=== PATIENT | female | born 1980 | race Caucasian/White ===

== ENCOUNTER 2019-05-09 20:58 | Emergency (ER) | payer OTHER, SELFPAY ==
[2019-05-09 21:13] VITALS: BP 129/77; PULSE 91; RESP 14; TEMP 36.9; O2SAT 94
--- NOTE | 2019-05-09 21:13 | DI.RAD.S_ITS ---
PROCEDURE: XR KNEE LT 3V INDICATIONS: twisting injury lt knee pain unable to bear weight TECHNIQUE: 3 views of the knee were acquired. COMPARISON: None. FINDINGS: Bones: No fractures or dislocations. No suspicious bony lesions. Soft tissues: No joint effusion. No suspicious soft tissue calcifications. IMPRESSION: No evidence acute bony abnormality of the left knee Dictated by: Devin Dale M.D. on 05/09/2019 at 21:52 Approved by: Devin Dale M.D. on 05/09/2019 at 21:52
--- NOTE | 2019-05-09 22:11 | ED.LOWEXIN ---
HPI - Extremity Injury (Lower) General Chief Complaint: Extremity Injury, Lower Stated Complaint: LEFT KNEE INJURY Time Seen by Provider: 05/09/19 21:17 Source: patient and family Mode of arrival: ambulatory Limitations: no limitations History of Present Illness HPI Narrative: 30-year-old female nonsmoker with noncontributory medical history presents with severe left knee pain after twisting it while walking briskly on uneven terrain. She states that she fell while twisting and denies any direct impact of her knee. She has significant pain with ambulation and improvement with rest. She denies other injury. She denies any numbness, tingling or weakness. She denies any history of left knee trouble, but has a history of right knee injury MD complaint: knee injury Onset (ago): hour(s) Type of Injury: inversion Place: street/outdoors Severity: moderate Relieving factors: immobilization and rest Exacerbating factors: weight bearing, movement and palpation Context: fall and walking Associated symptoms: swelling and able to partially bear weight Other symptoms: none Treatments prior to arrival: cold therapy Related Data Home Medications Medication Instructions Recorded Confirmed cetirizine 10 mg PO Q DAY #0 10/15/16 Previous Rx's Medication Instructions Recorded celecoxib [Celebrex] 200 mg PO [facility] #10 cap 11/04/17 cyclobenzaprine 10 mg PO Q8HP PRN #20 tab 11/04/17 hydrocodone-acetaminophen [[place]] 1 tab PO Q4HP PRN #14 tab 11/04/17 Allergies Allergy/AdvReac Type Severity Reaction Status Date / Time chlorhexidine [CHLORHEXIDINE] Allergy Intermediate RASH/HIVES Unverified 12/23/17 12:22 azithromycin [AZITHROMYCIN] Allergy Unknown HIVES Unverified 12/23/17 12:22 bee pollen [BEE POLLEN] Allergy Unknown Unverified 12/23/17 12:22 ciprofloxacin [CIPROFLOXACIN] Allergy Unknown INTENSE Unverified 12/23/17 12:22 STOMACH PAIN RED MEAT Allergy Unknown Uncoded 12/23/17 12:22 CUCA HAY Allergy Unknown Uncoded 12/23/17 12:22 Review of Systems Constitutional Denies chills, Denies fever(s), Denies lethargy and Denies weakness Eyes Denies change in vision, Denies eye discharge, Denies irritation and Denies loss of vision ENT Ears, Nose, Mouth, and Throat: Denies change in voice, Denies neck pain and Denies sore throat Cardiovascular Denies chest pain, Denies irregular heart rhythm, Denies lightheadedness, Denies palpitations, Denies dyspnea, Denies dyspnea on exertion and Denies orthopnea Respiratory Denies cough, Denies dyspnea, Denies dyspnea on exertion and Denies wheezing Gastrointestinal Gastrointestinal: Denies abdominal pain, Denies change in bowel habits, Denies diarrhea, Denies nausea and Denies vomiting Genitourinary Denies hematuria, Denies flank pain, Denies urinary incontinence and Denies urinary urgency Musculoskeletal Reports joint swelling, Reports limited range of motion and Denies neck pain Integumentary/Breasts Denies pruritus, Denies erythema, Denies rash and Denies wounds Neurologic Denies confusion, Denies loss of vision and Denies weakness Psychiatric Denies anxiety, Denies confusion, Denies depression, Denies homicidal ideation and Denies suicidal ideation Endocrine Denies palpitations Hematologic/Lymphatic Denies easy bruising Allergic/Immunologic Denies wheezing Exam Narrative Exam Narrative: GENERAL: [30] year old patient appears stated age. Well-nourished, well-developed patient, in mild distress, rubbing her left knee HEAD: Atraumatic. Normocephalic. EYES: Pupils equal round and reactive. Extraocular motions intact. No scleral icterus. No injection or drainage. ENT: Nose without bleeding, purulent drainage. Throat without erythema, tonsillar hypertrophy or exudate. Airway patent. NECK: Trachea midline. Non tender CARDIOVASCULAR: Regular rate and rhythm without murmurs, gallops, or rubs. RESPIRATORY: Clear to auscultation. Breath sounds equal bilaterally. No wheezes, rales, or rhonchi. GASTROINTESTINAL: Abdomen soft, non-tender, nondistended. EXTREMITIES: No joint line or patellar tenderness. No obvious effusion. There is some ligamentous instability with examination of LCL. Mahamed's has firm stop. Corrina's illicits pain at lateral aspect BACK: Nontender without deformity or crepitance. No flank tenderness. NEURO: AOx3. SKIN: No rash or erythema of visible areas Initial Vital Signs Initial Vital Signs: Vital Signs Temperature 98.4 F 05/09/19 21:13 Pulse Rate 91 H 05/09/19 21:13 Respiratory Rate 14 05/09/19 21:13 Blood Pressure 129/77 05/09/19 21:13 Pulse Oximetry 94 05/09/19 21:13 Procedures Orthopedic Splinting/Casting Injury #1: Side: left Lower Extremity Injury Location: knee Lower Extremity Immobilizer: knee immobilizer Course Orders Ordered: ED Orders 05/09/19 21:13 XR knee LT 3V Stat Vital Signs - 8 hr 05/09/19 21:13 05/09/19 22:18 Temperature 98.4 F Pulse Rate 91 H 77 Respiratory Rate 14 18 Blood Pressure 114/71 Blood Pressure [Left Arm] 129/77 Pulse Oximetry 94 98 MDM - Extremity Injury (Lower) Imaging Data Knee Xray: Radiologist's impression: [address] [address] XRay Report Signed Patient: Elizabeth Durant LMR#: [id number] : 1980Acct:[id number] Age/Sex: 38 / FDate of Service: 05/09/19 Loc: ED Accession Number: [id number] Procedure: XR knee LT 3V Ordering Provider: Jace Ocasio D.O. PROCEDURE: XR KNEE LT 3V INDICATIONS: twisting injury lt knee pain unable to bear weight TECHNIQUE: 3 views of the knee were acquired. COMPARISON: None. FINDINGS: Bones: No fractures or dislocations. No suspicious bony lesions. Soft tissues: No joint effusion. No suspicious soft tissue calcifications. IMPRESSION: No evidence acute bony abnormality of the left knee Dictated by: Devin Dale M.D. on 05/09/2019 at 21:52 Approved by: Devin Dale M.D. on 05/09/2019 at 21:52 Discharge Plan Departure Patient Disposition: Home Clinical Impression: Knee LCL sprain Qualifiers: Encounter type: initial encounter Laterality: left Qualified Code(s): S83.422A - Sprain of lateral collateral ligament of left knee, initial encounter Discharge Date/Time: 05/09/19 22:18 Interventions: ED Discharge Assessment Last Done: 05/09/19 22:18 Instructions: DI for Knee Sprain Activity Restrictions/Additional Instructions: *You have been diagnosed with [ L knee sprain, suspect LCL involvement and possibly meniscus ] *What to do: *Take medications as directed *Follow up with your primary care provider in 2-3 days, call for an appointment. Let them know you were seen in the Emergency Department and that we ask that you be seen in follow up *Return to ER if you should have any new, worsening or concerning symptoms Prescriptions: No Action cetirizine 10 MG tablet 10 mg PO Q DAY Qty: 0 RF: 0 celecoxib [Celebrex] 200 MG capsule 200 mg PO [facility] Qty: 10 RF: 0 cyclobenzaprine 10 MG tablet 10 mg PO Q8HP PRNQty: 20 RF: 0 hydrocodone-acetaminophen [[place]] 5 MG/325 MG tablet 1 tab PO Q4HP PRNQty: 14 RF: 0 Referrals: Robles Townsedn MD [Primary Care Provider] -
[2019-05-09 22:18] VITALS: BP 114/71; PULSE 77; RESP 18; O2SAT 98
--- NOTE | 2019-05-10 04:34 | ED_ITS ---
HPI - Extremity Injury (Lower) General Chief Complaint: Extremity Injury, Lower Stated Complaint: LEFT KNEE INJURY Time Seen by Provider: 05/09/19 21:17 Source: patient and family Mode of arrival: ambulatory Limitations: no limitations History of Present Illness HPI Narrative: 30-year-old female nonsmoker with noncontributory medical history presents with severe left knee pain after twisting it while walking briskly on uneven terrain. She states that she fell while twisting and denies any direct impact of her knee. She has significant pain with ambulation and improvement with rest. She denies other injury. She denies any numbness, tingling or weakness. She denies any history of left knee trouble, but has a history of right knee injury MD complaint: knee injury Onset (ago): hour(s) Type of Injury: inversion Place: street/outdoors Severity: moderate Relieving factors: immobilization and rest Exacerbating factors: weight bearing, movement and palpation Context: fall and walking Associated symptoms: swelling and able to partially bear weight Other symptoms: none Treatments prior to arrival: cold therapy Related Data Home Medications Medication Instructions Recorded Confirmed cetirizine 10 mg PO Q DAY #0 10/15/16 Previous Rx's Medication Instructions Recorded celecoxib [Celebrex] 200 mg PO [facility] #10 cap 11/04/17 cyclobenzaprine 10 mg PO Q8HP PRN #20 tab 11/04/17 hydrocodone-acetaminophen [[place]] 1 tab PO Q4HP PRN #14 tab 11/04/17 Allergies Allergy/AdvReac Type Severity Reaction Status Date / Time chlorhexidine [CHLORHEXIDINE] Allergy Intermediate RASH/HIVES Unverified 12/23/17 12:22 azithromycin [AZITHROMYCIN] Allergy Unknown HIVES Unverified 12/23/17 12:22 bee pollen [BEE POLLEN] Allergy Unknown Unverified 12/23/17 12:22 ciprofloxacin [CIPROFLOXACIN] Allergy Unknown INTENSE Unverified 12/23/17 12:22 STOMACH PAIN RED MEAT Allergy Unknown Uncoded 12/23/17 12:22 CUCA HAY Allergy Unknown Uncoded 12/23/17 12:22 Review of Systems Constitutional Denies chills, Denies fever(s), Denies lethargy and Denies weakness Eyes Denies change in vision, Denies eye discharge, Denies irritation and Denies loss of vision ENT Ears, Nose, Mouth, and Throat: Denies change in voice, Denies neck pain and Denies sore throat Cardiovascular Denies chest pain, Denies irregular heart rhythm, Denies lightheadedness, Denies palpitations, Denies dyspnea, Denies dyspnea on exertion and Denies orthopnea Respiratory Denies cough, Denies dyspnea, Denies dyspnea on exertion and Denies wheezing Gastrointestinal Gastrointestinal: Denies abdominal pain, Denies change in bowel habits, Denies diarrhea, Denies nausea and Denies vomiting Genitourinary Denies hematuria, Denies flank pain, Denies urinary incontinence and Denies urinary urgency Musculoskeletal Reports joint swelling, Reports limited range of motion and Denies neck pain Integumentary/Breasts Denies pruritus, Denies erythema, Denies rash and Denies wounds Neurologic Denies confusion, Denies loss of vision and Denies weakness Psychiatric Denies anxiety, Denies confusion, Denies depression, Denies homicidal ideation and Denies suicidal ideation Endocrine Denies palpitations Hematologic/Lymphatic Denies easy bruising Allergic/Immunologic Denies wheezing Exam Narrative Exam Narrative: GENERAL: [30] year old patient appears stated age. Well- nourished, well-developed patient, in mild distress, rubbing her left knee HEAD: Atraumatic. Normocephalic. EYES: Pupils equal round and reactive. Extraocular motions intact. No scleral icterus. No injection or drainage. ENT: Nose without bleeding, purulent drainage. Throat without erythema, tonsillar hypertrophy or exudate. Airway patent. NECK: Trachea midline. Non tender CARDIOVASCULAR: Regular rate and rhythm without murmurs, gallops, or rubs. RESPIRATORY: Clear to auscultation. Breath sounds equal bilaterally. No wheezes, rales, or rhonchi. GASTROINTESTINAL: Abdomen soft, non-tender, nondistended. EXTREMITIES: No joint line or patellar tenderness. No obvious effusion. There is some ligamentous instability with examination of LCL. Mahamed's has firm stop. Corrina's illicits pain at lateral aspect BACK: Nontender without deformity or crepitance. No flank tenderness. NEURO: AOx3. SKIN: No rash or erythema of visible areas Initial Vital Signs Initial Vital Signs: Vital Signs Temperature 98.4 F 05/09/19 21:13 Pulse Rate 91 H 05/09/19 21:13 Respiratory Rate 14 05/09/19 21:13 Blood Pressure 129/77 05/09/19 21:13 Pulse Oximetry 94 05/09/19 21:13 Procedures Orthopedic Splinting/Casting Injury #1: Side: left Lower Extremity Injury Location: knee Lower Extremity Immobilizer: knee immobilizer Course Orders Ordered: ED Orders 05/09/19 21:13 XR knee LT 3V Stat Vital Signs - 8 hr 05/09/19 21:13 05/09/19 22:18 Temperature 98.4 F Pulse Rate 91 H 77 Respiratory Rate 14 18 Blood Pressure 114/71 Blood Pressure [Left Arm] 129/77 Pulse Oximetry 94 98 MDM - Extremity Injury (Lower) Imaging Data Knee Xray: Radiologist's impression: [address] [address] XRay Report Signed Patient: Elizabeth Durant LMR#: [id number] : 1980Acct:[id number] Age/Sex: 38 / FDate of Service: 05/09/19 Loc: ED Accession Number: [id number] Procedure: XR knee LT 3V Ordering Provider: Jace Ocasio D.O. PROCEDURE: XR KNEE LT 3V INDICATIONS: twisting injury lt knee pain unable to bear weight TECHNIQUE: 3 views of the knee were acquired. COMPARISON: None. FINDINGS: Bones: No fractures or dislocations. No suspicious bony lesions. Soft tissues: No joint effusion. No suspicious soft tissue calcifications. IMPRESSION: No evidence acute bony abnormality of the left knee Dictated by: Devin Dale M.D. on 05/09/2019 at 21:52 Approved by: Devin Dale M.D. on 05/09/2019 at 21:52 Discharge Plan Departure Patient Disposition: Home Clinical Impression: Knee LCL sprain Qualifiers: Encounter type: initial encounter Laterality: left Qualified Code(s): S83.422A - Sprain of lateral collateral ligament of left knee, initial encounter Discharge Date/Time: 05/09/19 22:18 Interventions: ED Discharge Assessment Last Done: 05/09/19 22:18 Instructions: DI for Knee Sprain Activity Restrictions/Additional Instructions: *You have been diagnosed with [ L knee sprain, suspect LCL involvement and possibly meniscus ] *What to do: *Take medications as directed *Follow up with your primary care provider in 2-3 days, call for an appointment. Let them know you were seen in the Emergency Department and that we ask that you be seen in follow up *Return to ER if you should have any new, worsening or concerning symptoms Prescriptions: No Action cetirizine 10 MG tablet 10 mg PO Q DAY Qty: 0 RF: 0 celecoxib [Celebrex] 200 MG capsule 200 mg PO [facility] Qty: 10 RF: 0 cyclobenzaprine 10 MG tablet 10 mg PO Q8HP PRNQty: 20 RF: 0 hydrocodone-acetaminophen [[place]] 5 MG/325 MG tablet 1 tab PO Q4HP PRNQty: 14 RF: 0 Referrals: Robles Townsend MD [Primary Care Provider] -
== END 2019-05-09 22:18 | disposition home or self-care (01) ==
PROVIDERS: Emergency Provider Emergency Medicine
DX: S83.422A Sprain of lateral collateral ligament of left knee, initial encounter (principal)
CPT/HCPCS: 29505; 73562; 99283

== ENCOUNTER 2019-08-10 17:28 | Emergency (ER) | payer OTHER, SELFPAY ==
[2019-08-10 17:45] VITALS: BP 124/89; PULSE 82; RESP 16; TEMP 36.6; O2SAT 98; BMI 36.8
--- NOTE | 2019-08-10 17:50 | DI.RAD.S_ITS ---
PROCEDURE: XR SHOULDER RT MIN 2V INDICATIONS: fell off her horse TECHNIQUE: 3 views of the shoulder were acquired. COMPARISON: None. FINDINGS: Bones: No fractures or dislocations. Coracoclavicular and acromioclavicular intervals are maintained. No suspicious bony lesions. Visualized ribs appear intact. Soft tissues: No suspicious soft tissue calcifications. IMPRESSION: Right shoulder without acute fracture or dislocation. Dictated by: Frank Danielle M.D. on 08/10/2019 at 20:26 Approved by: Frank Danielle M.D. on 08/10/2019 at 20:28
--- NOTE | 2019-08-10 17:51 | DI.RAD.S_ITS ---
PROCEDURE: XR HUMERUS RT 2V INDICATIONS: fell off her horse TECHNIQUE: AP and lateral views of the humerus were acquired. COMPARISON: None. FINDINGS: Bones: No fractures or dislocations. No suspicious bony lesions. Soft tissues: No suspicious soft tissue calcifications. IMPRESSION: Right humerus without acute fracture or dislocation. If there is persistent clinical concern for occult fracture given adequate mechanism of injury, consider repeat imaging in 10-14 days. Dictated by: Frank Danielle M.D. on 08/10/2019 at 20:28 Approved by: Frank Danielle M.D. on 08/10/2019 at 20:28
--- NOTE | 2019-08-10 18:07 | ED.TRAUMA ---
HPI - Trauma General Chief Complaint: Fall Stated Complaint: fell off horse, hurt right shoulder/arm Time Seen by Provider: 08/10/19 18:06 Source: patient Mode of arrival: Family Vehicle Limitations: no limitations History of Present Illness HPI narrative: This is a 38-year-old female accompanied by her . Patient states she fell off a horse. She states the horse reared up she was afraid it might fall over backwards so she pushed off and fell onto her left arm and shoulder. She states she did in her head. She had a helmet on. She denies any neck or back pain. She states it did knock the wind out of her but her breath returned quickly after resting for a minute. Patient denies any shortness of breath or chest pain at this time. Treated her pain is in her right shoulder and elbow. She states she was able to use her arm and straighten it she was able to remove the forces equipment but she is quite uncomfortable. She denies any numbness or tingling. She denies any weakness. she denies any other injuries. She denies any medical issues, states she has a history of hysterectomy and cholecystectomy. Related Data Home Medications Medication Instructions Recorded Confirmed cetirizine 10 mg PO Q DAY #0 10/15/16 Previous Rx's Medication Instructions Recorded celecoxib [Celebrex] 200 mg [facility] cap 11/04/17 cyclobenzaprine 10 mg PO Q8HP PRN #20 tab 11/04/17 hydrocodone-acetaminophen [[place]] 1 tab PO Q4HP PRN #14 tab 11/04/17 Allergies Allergy/AdvReac Type Severity Reaction Status Date / Time chlorhexidine [CHLORHEXIDINE] Allergy Intermediate RASH/HIVES Verified 08/10/19 17:50 azithromycin [AZITHROMYCIN] Allergy Unknown HIVES Verified 08/10/19 17:50 bee pollen [BEE POLLEN] Allergy Unknown Verified 08/10/19 17:50 ciprofloxacin [CIPROFLOXACIN] Allergy Unknown INTENSE Verified 08/10/19 17:50 STOMACH PAIN RED MEAT Allergy Unknown Uncoded 08/10/19 17:50 CUCA HAY Allergy Unknown Uncoded 08/10/19 17:50 Review of Systems Review of Systems ROS Unobtainable: All systems reviewed & are unremarkable except as noted in HPI and below Patient History Social History (Reviewed 05/10/19 @ 04:31 by DESIRE Davidson Smoking Status: Never smoker alcohol intake frequency: 0-2 drinks per day Substance Use Type: does not use Exam Narrative Exam Narrative: GEN: Patient appears in mild distress. HEAD: No evidence of trauma, no raccoon/Duke sign. NECK: Nontender, painless range of motion, trachea midline Negative for Nexus criteria, no line tenderness, distracting injury, altered mental status, neuro deficit, recent EtOH. EYES: PERRLA, EOMI ENT: External inspection normal, trachea is midline, TM's are normal no hemotypanum, Nares are clear, no septal hematoma, no dental or oral injury, airway is normal and with normal occlusion, No bony tenderness RESP: Chest is nontender and has symmetric movement, no ecchymosis, breath sounds are normal no crackles, wheezes or rales CVS: Heart sounds are normal, no murmur noted, No JVD. ABG/GI: Nontender, soft, normal bowel sounds, no distention, no organomegaly, pelvic rock is negative NEURO: Oriented AOx3, neuro is grossly intact, sensation and motor is normal all 4 extremities moving, cranial nerves II through XII are intact, GCS is 15 PSYCH: Normal mood and affect SKIN: Intact, warm and dry, no crepitus and without decubitus BACK: No CVA tenderness, no vertebral tenderness, no step-off's, no crepitus EXT: Patient has mild tenderness over the AC of the right shoulder she also has some very mild over the proximal elbow. Patient does not have any bony tenderness of the forearm or hand. She has equal career technology teacher. 2+ radial pulse with normal sensation. She has decreased range of motion at the elbow, hips are nontender, no pedal edema, normal color and temperature, normal range of motion of extremities with normal tendon exam, 2+ pulses in all four extremities Initial Vital Signs Initial Vital Signs: Vital Signs Temperature 97.9 F 08/10/19 17:45 Pulse Rate 82 08/10/19 17:45 Respiratory Rate 16 08/10/19 17:45 Blood Pressure 124/89 08/10/19 17:45 Pulse Oximetry 98 08/10/19 17:45 Course Orders Ordered: ED Orders 08/10/19 17:50 XR shoulder RT min 2V Stat 08/10/19 17:51 XR humerus RT 2V Stat Discontinued Medications Hydrocodone Bitart/Acetaminophen ([place] 5/325) 1 tab PO NOW ONE Stop: 08/10/19 18:20 Last Admin: 08/10/19 18:27 Dose: 1 tab Documented by: MICHAEL Vital Signs Vital signs: Vital Signs - 8 hr 08/10/19 19:26 Pulse Rate 77 Respiratory Rate 16 Blood Pressure 138/77 Pulse Oximetry 97 [facility] - Trauma Imaging Data Shoulder x-ray: My impression: No fracture. No dislocation Humerus x-ray: My impression: No fracture or dislocation. [facility] Narrative Medical decision making narrative: Patient has very mild tenderness, she does have fairly normal range of motion although she does not wish to lift her shoulder higher than shoulder height. Patient does not have any fracture dislocation noted on initial read. We discussed that I will wait for radiology read and contact her if there is discrepancy. I did offer her a sling but she defers. Plan for ibuprofen and Tylenol as needed. We did discuss that if she continues to have symptoms particularly point tenderness over the next week she would need repeat imaging for possible occult fractures. Patient is comfortable with this plan. Discharge Plan Departure Patient Disposition: Home Clinical Impression: Fall from horse, Acute pain of right shoulder, Elbow pain, right Discharge Date/Time: 08/10/19 19:20 Instructions: DI for Shoulder Pain Activity Restrictions/Additional Instructions: Follow-up in 7-10 days if your symptoms are not improving for recheck and potentially repeat imaging. You may take Tylenol up to a 1000 mg every 8 hours and/or ibuprofen to 800 mg every 8 hours. You may take these together. Return to the emergency department for rapidly worsening pain, new numbness, weakness, inability academic adviser, lightheadedness, passing out, sudden severe headaches, new shortness of breath, chest pain or pressure, persistent vomiting or other new or concerning symptoms. Prescriptions: No Action cetirizine 10 MG tablet 10 mg PO Q DAY Qty: 0 RF: 0 celecoxib [Celebrex] 200 MG capsule 200 mg PO [facility] Qty: 10 RF: 0 cyclobenzaprine 10 MG tablet 10 mg PO Q8HP PRNQty: 20 RF: 0 hydrocodone-acetaminophen [[place]] 5 MG/325 MG tablet 1 tab PO Q4HP PRNQty: 14 RF: 0 Referrals: Robles Townsend MD [Primary Care Provider] -
[2019-08-10] MEDS: HYDROCODONE/ACET 5/325 TABLET 1 TAB PO (18:27)
[2019-08-10 19:26] VITALS: BP 138/77; PULSE 77; RESP 16; O2SAT 97
== END 2019-08-10 19:20 | disposition home or self-care (01) ==
PROVIDERS: Emergency Provider Emergency Medicine
DX: M25.511 Pain in right shoulder (principal); M25.521 Pain in right elbow; V80.010A Animal-rider injured by fall from or being thrown from horse in noncollision accident, initial encounter
CPT/HCPCS: 73030; 73060; 99282; 99283

== ENCOUNTER 2019-08-24 11:34 | Emergency (ER) | payer OTHER, SELFPAY ==
[2019-08-24 11:37] VITALS: BP 147/86; PULSE 90; RESP 17; TEMP 36.5; O2SAT 98; BMI 37.2
--- NOTE | 2019-08-24 11:42 | DI.RAD.S_ITS ---
PROCEDURE: XR ANKLE RT MIN 3V INDICATIONS: ankle injury, rolled ankle today TECHNIQUE: 3 views of the ankle were acquired. COMPARISON: None. FINDINGS: Bones: No fractures or dislocations. Ankle mortise is normally aligned. No suspicious bony lesions. Soft tissues: There is a small tibiotalar joint effusion. Mild soft tissue swelling about the ankle is best appreciated overlying the lateral malleolus. IMPRESSION: No acute osseous abnormality of the right ankle. Dictated by: August Butler M.D. on 08/24/2019 at 11:08 Approved by: August Butler M.D. on 08/24/2019 at 11:09
--- NOTE | 2019-08-24 12:35 | ED.LOWEXIN ---
HPI - Extremity Injury (Lower) General Chief Complaint: Extremity Injury, Lower Stated Complaint: rolled ankle 6 weeks ago,again today Time Seen by Provider: 08/24/19 12:35 Source: patient Mode of arrival: Ambulatory Limitations: no limitations History of Present Illness HPI Narrative: This is a 38-year-old female who comes to the emergency department with complaint of rolling her ankle in an inversion today. Patient states she was stepping down and off of her porch when she rolled it. She has pain on the lateral side of the ankle with swelling. A little bit of swelling across the top of the ankle. Patient states her toes felt a little funny but they feel normal now. She denies any numbness or tingling. She denies pain elsewhere. She denies any other injuries. She states she did roll her ankle about 6 weeks ago had similar symptoms with more generalized swelling but that that had resolved. She does have crutches. Related Data Home Medications Medication Instructions Recorded Confirmed cetirizine 10 mg PO Q DAY #0 10/15/16 Previous Rx's Medication Instructions Recorded celecoxib [[facility]] [facility] cap 11/04/17 cyclobenzaprine 10 mg PO Q8HP PRN #20 tab 11/04/17 hydrocodone-acetaminophen [[place]] 1 tab PO Q4HP PRN #14 tab 11/04/17 Allergies Allergy/AdvReac Type Severity Reaction Status Date / Time chlorhexidine [CHLORHEXIDINE] Allergy Intermediate RASH/HIVES Verified 08/10/19 17:50 azithromycin [AZITHROMYCIN] Allergy Unknown HIVES Verified 08/10/19 17:50 bee pollen [BEE POLLEN] Allergy Unknown Verified 08/10/19 17:50 ciprofloxacin [CIPROFLOXACIN] Allergy Unknown INTENSE Verified 08/10/19 17:50 STOMACH PAIN RED MEAT Allergy Unknown Uncoded 08/10/19 17:50 CUCA HAY Allergy Unknown Uncoded 08/10/19 17:50 Review of Systems Review of Systems ROS Unobtainable: All systems reviewed & are unremarkable except as noted in HPI and below Patient History Social History Smoking Status: Never smoker Smoking Status: Never smoker alcohol intake frequency: 0-2 drinks per day Substance Use Type: does not use Exam Narrative Exam Narrative: GENERAL: Alert and oriented x three, obese, well-appearing female in mild distress. HEENT: Head normocephalic, atraumatic, EOMI, pupils reactive, face symmetric, moist mucous membranes NECK: Supple, full range of motion CARDIOVASCULAR: Regular rate and rhythm without murmurs, rubs or gallops. RESPIRATORY: Breath sounds equal bilaterally, no wheezes rales or rhonchi. ABDOMEN: Soft, nontender. Normoactive bowel sounds all 4 quadrants. No guarding or rebound, rigidity, no mass EXTREMITIES: Decreased range of motion at the ankle, normal range of motion of the toes as well as knee. Patient has swelling of the lateral malleoli and just inferior. There is ecchymosis inferior to the lateral malleoli. Patient has tenderness over the lateral malleoli with no other bony tenderness throughout the foot or ankle. No joint laxity is noted, no clubbing. 2+ dorsalis pedis. Neurovascularly intact NEUROLOGICAL: Cranial nerves II through XII grossly intact. Moving all extremities SKIN: Warm, dry, no petechiae, no rashes or lesions. Initial Vital Signs Initial Vital Signs: Vital Signs Temperature 97.7 F 08/24/19 11:37 Pulse Rate 90 08/24/19 11:37 Respiratory Rate 17 08/24/19 11:37 Blood Pressure 147/86 H 08/24/19 11:37 Pulse Oximetry 98 08/24/19 11:37 Course Orders Ordered: ED Orders 08/24/19 11:42 XR ankle RT min 3V Stat Vital Signs Vital signs: Vital Signs - 8 hr 08/24/19 11:37 Temperature 97.7 F Pulse Rate 90 Respiratory Rate 17 Blood Pressure 147/86 H Pulse Oximetry 98 MDM - Extremity Injury (Lower) Imaging Data ankle xray: Radiologist's impression: [address] [address] XRay Report Signed Patient: Elizabeth Durant LMR#: [id number] : 1980Acct:[id number] Age/Sex: 38 / FDate of Service: 08/24/19 Loc: ED Accession Number: [id number] Procedure: XR ankle RT min 3V Ordering Provider: Kim Crump D.O. PROCEDURE: XR ANKLE RT MIN 3V INDICATIONS: ankle injury, rolled ankle today TECHNIQUE: 3 views of the ankle were acquired. COMPARISON: None. FINDINGS: Bones: No fractures or dislocations. Ankle mortise is normally aligned. No suspicious bony lesions. Soft tissues: There is a small tibiotalar joint effusion. Mild soft tissue swelling about the ankle is best appreciated overlying the lateral malleolus. IMPRESSION: No acute osseous abnormality of the right ankle. Dictated by: August Butler M.D. on 08/24/2019 at 11:08 Approved by: August Butler M.D. on 08/24/2019 at 11:09 Discharge Plan Departure Patient Disposition: Home Clinical Impression: Ankle sprain Discharge Date/Time: 08/24/19 12:58 Instructions: DI for Ankle Sprain Activity Restrictions/Additional Instructions: Follow-up with your primary care physician at your appointment tomorrow. You may take ibuprofen and/or Tylenol as needed for pain. Use crutches as needed, you may weight bear as tolerated Splint Care: Keep splint clean and dry. Elevated affected body part to decrease swelling. OK to use ice pack on the affected body part. Use for 15-20 minutes each time, for 5-6x per day. If you develop worsening pain, numbness, tingling, discoloration of the affected body part, loosen the splint by loosening the ABDULKADIR wrap, and either see your doctor for an urgent re-assessment, or return to the Emergency Department. Return to the Emergency Department for any new or worsening symptoms. Prescriptions: No Action cetirizine 10 MG tablet 10 mg PO Q DAY Qty: 0 RF: 0 celecoxib [Celebrex] 200 MG capsule 200 mg PO [facility] Qty: 10 RF: 0 cyclobenzaprine 10 MG tablet 10 mg PO Q8HP PRNQty: 20 RF: 0 hydrocodone-acetaminophen [[place]] 5 MG/325 MG tablet 1 tab PO Q4HP PRNQty: 14 RF: 0 Referrals: Robles Townsend MD [Primary Care Provider] -
== END 2019-08-24 12:58 | disposition home or self-care (01) ==
PROVIDERS: Emergency Provider Emergency Medicine
DX: S93.401A Sprain of unspecified ligament of right ankle, initial encounter (principal); X58.XXXA Exposure to other specified factors, initial encounter
CPT/HCPCS: 29580; 73610; 99281; 99283

== ENCOUNTER → 2022-01-06 07:38 | Outpatient (CLI) | payer OTHER, SELFPAY | PROVIDERS: Visit Provider Physician Assistant | DX: R30.0 Dysuria (principal) | CPT/HCPCS: 87086 ==